=== PATIENT | male | born 1980 | race Caucasian/White ===

== ENCOUNTER 2023-11-15 08:42 | Day surgery (SDC) | payer OTHER ==
[2023-11-15] MEDS: Ondansetron 4 MG/2 ML SDV IVPUSH ONE (09:46)
[2023-11-15] MEDS: HYDROmorphone 1 MG/ML Syringe IVPUSH ONE (09:46)
[2023-11-15] MEDS: Sodium Chloride 0.9% 500 ML IV SCH (09:47)
[2023-11-15 09:48] LABS: BASOPHILS ABSOLUTE AUTO 0.07 K/uL (0.00-0.10); BASOPHILS PERCENT AUTO 0.4 % (0.1-1.3); EOSINOPHILS ABSOLUTE AUTO 0.14 K/uL (0.00-0.40); EOSINOPHILS PERCENT AUTO 0.8 % (0.0-5.4); HEMATOCRIT 43.9 % (38.4-49.7); HEMOGLOBIN 16.1 g/dL (12.9-16.9); IMMATURE GRAN ABSOLUTE AUTO 0.06 K/uL (0.00-0.23); IMMATURE GRAN PERCENT AUTO 0.3 % (0.0-0.7); LYMPHOCYTES ABSOLUTE AUTO 2.68 K/uL (0.8-3.3); LYMPHOCYTES PERCENT AUTO 15.1 % (11.4-47.7); MEAN CORPUSCULAR HEMOGLOBIN 31.5 pg (31.6-35.5); MEAN CORPUSCULAR HGB CONC 36.7 g/dL (31.6-35.5); MEAN CORPUSCULAR VOLUME 85.9 fL (81.4-99.0); MONOCYTES ABSOLUTE AUTO 1.96 K/uL (0.20-0.90); NEUTROPHILS ABSOLUTE AUTO 12.85 K/uL (1.0-7.6); NEUTROPHILS PERCENT AUTO 72.4 % (40.0-78.1); PLATELET COUNT,PLT 241 K/uL (130-375); RED BLOOD CELL COUNT 5.11 M/uL (4.14-5.76); WHITE BLOOD CELL COUNT,WBC 17.8 K/uL (3.2-11.0)
[2023-11-15] MEDS: Sodium Chloride 0.9% 10 ML Syringe FLUSH PRN (10:04)
[2023-11-15] MEDS: Sodium Chloride 0.9% 80 ML IV SCH (10:04)
[2023-11-15] MEDS: Iopamidol 612 MG/ML 100 ML Bottle IV PRN (10:04)
[2023-11-15 10:09] LABS: A/G RATIO 0.9 (1.2-2.2); ALANINE AMINOTRANSFERASE,ALT 18 U/L (12-78); ALBUMIN 3.2 g/dL (3.4-5.0); ALKALINE PHOSPHATASE 71 U/L (46-116); ASPARTATE AMNIOTRANSFERASE,AST 12 U/L (15-37); BILIRUBIN TOTAL 0.8 mg/dL (0.2-1.0); BLOOD UREA NITROGEN,BUN 11 mg/dL (7-18); CALCIUM 8.8 mg/dL (8.5-10.1); CARBON DIOXIDE,CO2 26 mmol/L (21-32); CHLORIDE,CL 102 mmol/L (100-108); CREATININE 1.1 mg/dL (0.8-1.3); EST CRCL DRUG DOSING (CG) 92.22 mL/min; ESTIMATED GFR 85 mL/min (>60); GLUCOSE RANDOM 140 mg/dL (74-106); POTASSIUM,K 3.8 mmol/L (3.6-5.2); PROTEIN TOTAL,TP 6.8 g/dL (6.4-8.2); SODIUM,NA 137 mmol/L (140-148)
[2023-11-15 10:16] LABS: ANION GAP 12.8 mmol/L (5.0-14.0)
[2023-11-15] MEDS: diphenhydrAMINE 50 MG/ML SDV IVPUSH ONE (10:24)
[2023-11-15] MEDS: methylPREDNISolone Sodium Succinate 125 MG/2 ML SDV IVPUSH ONE (10:27)
[2023-11-15] MEDS: Ciprofloxacin in D5W 400 MG in Premix Bag 1 BAG IV ONE (10:30)
[2023-11-15] MEDS: metroNIDAZOLE/Normal Saline 500 MG in Premix Bag 1 BAG IV ONE (10:43)
[2023-11-15] MEDS: Albuterol 0.083% 2.5 MG/3 ML Neb Soln NEB ONE (10:44)
[2023-11-15] MEDS: metroNIDAZOLE/Normal Saline 100 ML ONE (10:55)
[2023-11-15] MEDS ORDERED: Succinylcholine 200 MG/10 ML MDV ONE (11:55)
[2023-11-15] MEDS ORDERED: Dexamethasone 4 MG/ML SDV ONE (11:55)
[2023-11-15] MEDS ORDERED: Propofol 200 MG/20 ML SDV ONE (11:55)
[2023-11-15] MEDS ORDERED: fentaNYL 250 MCG/5 ML SDV ONE (11:55)
[2023-11-15] MEDS ORDERED: Glycopyrrolate 0.2 MG/ML 5 ML MDV ONE (11:55)
[2023-11-15] MEDS ORDERED: Neostigmine Methylsulfate 10 MG/10 ML MDV ONE (11:55)
[2023-11-15] MEDS ORDERED: Ondansetron 4 MG/2 ML SDV ONE (11:55)
[2023-11-15] MEDS ORDERED: Rocuronium 50 MG/5 ML Vial ONE (11:55)
[2023-11-15] MEDS ORDERED: Lidocaine 1% with EPINEPHrine 1:100,000 50 ML MDV ONE (11:58)
[2023-11-15] MEDS ORDERED: Zolpidem 5 MG Tab PO PRN (11:58)
[2023-11-15] MEDS ORDERED: hydrOXYzine HCL 100 MG/2 ML SDV IM PRN (11:58)
[2023-11-15] MEDS ORDERED: Bupivacaine 0.5% 50 ML MDV ONE (11:58)
[2023-11-15] MEDS ORDERED: Benzocaine/Cetylpyridinium/Menthol Lozenge MUCMEM PRN (11:58)
[2023-11-15] MEDS ORDERED: Docusate Sodium 100 MG Cap PO PRN (11:58)
[2023-11-15] MEDS: Ropivacaine 40 ML, dexAMETHasone 8 MG, EPINEPHrine 0.4 MG, Sodium Chloride 0.9% 37.6 ML NERVRT SCH (12:31)
[2023-11-15] MEDS ORDERED: Lactated Ringers 1,000 ML ONE (12:33)
[2023-11-15] MEDS ORDERED: Sugammadex Sodium 200 MG/2 ML VIAL IV ONE (12:37)
[2023-11-15] MEDS: Bupivacaine 0.5%/EPINEPHrine 1:200,000 50 ML MDV ONE (12:43)
[2023-11-15] MEDS: oxyCODONE 5 MG Tab PO PRN (19:46)
[2023-11-15] MEDS: Meropenem 500 MG in Sodium Chloride 0.9% 50 ML IV SCH (19:47)
[2023-11-15] MEDS: Nicotine 21 MG/24 Hr Patch TRDERM SCH (20:31)
[2023-11-16 05:26] LABS: BASOPHILS PERCENT AUTO 0.1 % (0.1-1.3); HEMATOCRIT 40.8 % (38.4-49.7); HEMOGLOBIN 14.6 g/dL (12.9-16.9); IMMATURE GRAN ABSOLUTE AUTO 0.08 K/uL (0.00-0.23); IMMATURE GRAN PERCENT AUTO 0.4 % (0.0-0.7); LYMPHOCYTES ABSOLUTE AUTO 1.15 K/uL (0.8-3.3); LYMPHOCYTES PERCENT AUTO 5.9 % (11.4-47.7); MEAN CORPUSCULAR HEMOGLOBIN 31.1 pg (31.6-35.5); MEAN CORPUSCULAR HGB CONC 35.8 g/dL (31.6-35.5); MONOCYTES ABSOLUTE AUTO 1.07 K/uL (0.20-0.90); MONOCYTES PERCENT AUTO 5.5 % (3.3-12.6); NEUTROPHILS ABSOLUTE AUTO 17.03 K/uL (1.0-7.6); NEUTROPHILS PERCENT AUTO 88.1 % (40.0-78.1); PLATELET COUNT,PLT 248 K/uL (130-375); RED BLOOD CELL COUNT 4.69 M/uL (4.14-5.76); WHITE BLOOD CELL COUNT,WBC 19.4 K/uL (3.2-11.0)
[2023-11-16 05:32] LABS: BASOPHILS ABSOLUTE AUTO 0.02 K/uL (0.00-0.10)
[2023-11-16 05:40] LABS: CALCIUM 8.8 mg/dL (8.5-10.1); CREATININE 1.2 mg/dL (0.8-1.3); EST CRCL DRUG DOSING (CG) 84.54 mL/min; POTASSIUM,K 4.1 mmol/L (3.6-5.2)
[2023-11-16 05:43] LABS: ANION GAP 12.1 mmol/L (5.0-14.0)
== END 2023-11-16 12:30 | disposition home or self-care (01) ==
LOC: JP.ED 08:42 → JP.SDS 11:58 → JP.MS 11:59 → UNDOADMOB 11:59 → JP.MS 11:59 → JP.SDS 11-16 12:30 → UNDODISOB 11-16 12:30
PROVIDERS: ATTEND Surgery
DX: K35.30 Acute appendicitis with localized peritonitis, without perforation or gangrene (principal); J45.909 Unspecified asthma, uncomplicated; Z88.0 Allergy status to penicillin; Z88.8 Allergy status to other drugs, medicaments and biological substances; Z98.890 Other specified postprocedural states; Z72.0 Tobacco use
CPT/HCPCS: 00840; 36415; 44970; 64488; 74177; 80048; 80053; 85025; 94640; 96361; 96365; 96368; 96375; 99285; A9270; J0171; J0330; J0665; J0744; J1100; J1170; J1200; J1836; J2185; J2405; J2704; J2710; J2795; J2930; J3010; J3490; J7030; J7120; Q9967; 88304

== ENCOUNTER 2024-06-30 05:19 | Emergency (ER) | payer OTHER ==
[2024-06-30 05:41] LABS: BASOPHILS ABSOLUTE AUTO 0.03 K/uL (0.00-0.10); BASOPHILS PERCENT AUTO 0.2 % (0.1-1.3); EOSINOPHILS ABSOLUTE AUTO 0.09 K/uL (0.00-0.40); EOSINOPHILS PERCENT AUTO 0.7 % (0.0-5.4); HEMATOCRIT 44.6 % (38.4-49.7); HEMOGLOBIN 16.6 g/dL (12.9-16.9); IMMATURE GRAN ABSOLUTE AUTO 0.05 K/uL (0.00-0.23); IMMATURE GRAN PERCENT AUTO 0.4 % (0.0-0.7); LYMPHOCYTES ABSOLUTE AUTO 0.78 K/uL (0.8-3.3); LYMPHOCYTES PERCENT AUTO 5.7 % (11.4-47.7); MEAN CORPUSCULAR HEMOGLOBIN 31.9 pg (31.6-35.5); MEAN CORPUSCULAR HGB CONC 37.2 g/dL (31.6-35.5); MEAN CORPUSCULAR VOLUME 85.8 fL (81.4-99.0); MONOCYTES ABSOLUTE AUTO 0.57 K/uL (0.20-0.90); MONOCYTES PERCENT AUTO 4.2 % (3.3-12.6); NEUTROPHILS ABSOLUTE AUTO 12.07 K/uL (1.0-7.6); NEUTROPHILS PERCENT AUTO 88.8 % (40.0-78.1); PLATELET COUNT,PLT 230 K/uL (130-375); WHITE BLOOD CELL COUNT,WBC 13.6 K/uL (3.2-11.0)
[2024-06-30] MEDS: diphenhydrAMINE 50 MG/ML SDV IVPUSH ONE ×2 (05:46→05:49)
[2024-06-30 06:05] LABS: A/G RATIO 1.2 (1.2-2.2); ALANINE AMINOTRANSFERASE,ALT 18 U/L (12-78); ALBUMIN 3.8 g/dL (3.4-5.0); ALKALINE PHOSPHATASE 70 U/L (46-116); ASPARTATE AMNIOTRANSFERASE,AST 15 U/L (15-37); BILIRUBIN TOTAL 0.8 mg/dL (0.2-1.0); BLOOD UREA NITROGEN,BUN 19 mg/dL (7-18); CALCIUM 8.6 mg/dL (8.5-10.1); CARBON DIOXIDE,CO2 25 mmol/L (21-32); CHLORIDE,CL 102 mmol/L (100-108); CREATININE 1.5 mg/dL (0.8-1.3); ESTIMATED GFR 59 mL/min (>60); GLUCOSE RANDOM 119 mg/dL (74-106); POTASSIUM,K 3.9 mmol/L (3.6-5.2); PROTEIN TOTAL,TP 6.9 g/dL (6.4-8.2); SODIUM,NA 139 mmol/L (140-148)
[2024-06-30 06:09] LABS: ANION GAP 15.9 mmol/L (5.0-14.0); TROPONIN I HIGH SENSITIVITY < 4.0 pg/mL (<=60.3)
[2024-06-30] MEDS: Sodium Chloride 0.9% 80 ML IV STA (06:20)
[2024-06-30] MEDS: Iopamidol 612 MG/ML 100 ML Bottle IV STA (06:20)
[2024-06-30] MEDS ORDERED: Naloxone 0.4 MG/ML SDV IVPUSH PRN (06:23)
[2024-06-30] MEDS: HYDROmorphone 0.5 MG/0.5 ML Syringe IVPUSH ONE (06:26)
[2024-06-30] MEDS: Sodium Chloride 0.9% 1,000 ML IV ONE (06:36)
[2024-06-30] MEDS: Albuterol/Ipratropium 3.0-0.5 MG/3 ML Neb Soln NEB ONE (07:38)
[2024-06-30] MEDS: Ketorolac 30 MG/ML SDV IVPUSH ONE (09:05)
[2024-06-30] MEDS: methylPREDNISolone Sodium Succinate 125 MG/2 ML SDV IVPUSH ONE (09:05)
[2024-06-30] MEDS: Sodium Chloride 0.9% 1,000 ML IV STA (10:27)
[2024-06-30 11:55] LABS: APPEARANCE,URINE CLEAR (CLEAR); BILIRUBIN,URINE NEGATIVE (NEGATIVE); COLOR,URINE YELLOW (YELLOW); GLUCOSE,URINE NEGATIVE (NEGATIVE); KETONES,URINE NEGATIVE (NEGATIVE); LEUKOCYTE ESTERASE,URINE NEGATIVE (NEGATIVE); NITRITE,URINE NEGATIVE (NEGATIVE); OCCULT BLOOD,URINE NEGATIVE (NEGATIVE); PH,URINE 7.5 (5.0-8.0); PROTEIN,URINE TRACE mg/dL (NEGATIVE); UROBILINOGEN,URINE 0.2 EU/dL (0.2-1.0)
[2024-06-30 12:03] LABS: AMORPHOUS SEDIMENT,URINE NOT SEEN; BACTERIA,URINE RARE; EPITHELIAL CELLS,URINE NOT SEEN; MUCUS,URINE NOT SEEN; RBC,URINE 0-5 (0-5); WBC,URINE 0-5 (0-5)
[2024-06-30 12:04] LABS: AMPHETAMINES SCREEN, URINE PRESUMPTIVE POSITIVE (NEGATIVE); BARBITURATE SCREEN,URINE NEGATIVE (NEGATIVE); BENZODIAZEPINES SCREEN,URINE NEGATIVE (NEGATIVE); METHADONE SCREEN, URINE NEGATIVE (NEGATIVE); METHAMPHETAMINES SCREEN, URINE PRESUMPTIVE POSITIVE (NEGATIVE); OXYCODONE SCREEN,URINE NEGATIVE (NEGATIVE); PROPOXYPHENE SCREEN,URINE NEGATIVE (NEGATIVE); THC SCREEN,URINE 50 NG/ML NEGATIVE (NEGATIVE)
== END 2024-06-30 12:22 | disposition home or self-care (01) ==
LOC: JP.ED 05:19
DX: S16.1XXA Strain of muscle, fascia and tendon at neck level, initial encounter (principal); Z88.0 Allergy status to penicillin; Z88.5 Allergy status to narcotic agent; Z88.8 Allergy status to other drugs, medicaments and biological substances; W01.0XXA Fall on same level from slipping, tripping and stumbling without subsequent striking against object, initial encounter
CPT/HCPCS: 36415; 70450; 71260; 72125; 72128; 74177; 76377; 80053; 80305; 80307; 81001; 84484; 85025; 86850; 86900; 86901; 93005; 94640; 96361; 96374; 96375; 99285; J1171; J1200; J1885; J2919; J3490; J7030; Q9967; 93010; J7620